=== PATIENT | male | born 1980 | race Caucasian/White ===

== ENCOUNTER 2021-05-05 07:42 | Outpatient (CLI) | payer OTHER ==
--- NOTE | 2021-05-05 10:01 | MRI Report ---
PROCEDURE: Abdomen W/O INDICATIONS: SYMPTOMS AND SIGNS INVOLVING EMOTIONAL STATE TECHNIQUE: Coronal ultra fast SE, axial 2-D spoiled GE in- and [id number] with subtractions from the hepatic d ome to the iliac crests. COMPARISON: None. FINDINGS: Image quality: Excellent. Adrenal glands: No adrenal nodule identified. Other solid organs: Liver and spleen are normal in overall size. Gallbladder is not distended. No g allstones seen. Biliary system is non dilated. Pancreas is normal in morphology. Both kidneys are normal in size, without hydronephrosis. Small T2 hyperintense cyst in the right kidney. Nodes and vessels: No retroperitoneal or mesenteric adenopathy by size criteria. Aorta and inferior vena cava are normal in size. Bowel and peritoneum: Unenhanced bowel loops are normal in caliber. No free fluid. Lung bases: No basal pleural effusions. Heart size is normal. Bones and soft tissues: No ventral hernias. Bone marrow is of normal overall signal. IMPRESSION: No adrenal nodule identified. No biliary or pancreatic ductal dilatation. No hydronephrosis. Reviewed by: Thai Metzger MD on 05/05/2021 10:00 AM [facility] Approved by: Thai Metzger MD on 05/05/2021 10:00 AM PST Station ID: [id number]
== END 2021-05-05 07:43 | disposition home or self-care (01) ==
LOC: DI 07:42
PROVIDERS: ATTEND Student in an Organized Health Care Education/Training Program
DX: R45.89 Other symptoms and signs involving emotional state (principal)